=== PATIENT | male | born 1955 | race African-American/Black ===

== ENCOUNTER 2019-04-30 23:21 | Inpatient (IN) | payer OTHER ==
[~2019-04-30] VITALS: Ht 180.3 cm; Wt 83.0 kg
[2019-04-30 23:30] VITALS: BP 146/80
[2019-04-30] MEDS ORDERED: ALBUTEROL SULF8.5 GM INH (23:31)
[2019-04-30] MEDS ORDERED: HYDRALAZINE HCL10 MG ORAL (23:31)
--- NOTE | 2019-04-30 23:39 | Emergency Room Report ---
History of Present Illness General Chief Complaint: Dyspnea/Respdistress Source: Patient Present Illness HPI This is a 63-year-old male with a history of COPD and hypertension. He presents with chief complaint of shortness of breath. Onset of about 4 hours ago. He was watching TV when he started having shortness of breath and wheezing. His inhaler was not helping. He called 911. EMS said he has wheezing and gave him breathing treatment. He denies any chest pain. Worse with inspiration. Worse with lying flat. Worse with exertion. Better with rest. Better with breathing treatment. Denies any trauma. No fever. Coughing is productive of phlegm. This is similar to previous episode. He said he get this exacerbation has got the hospital every month. He is currently on prednisone at 10 mg a day. Allergies: Coded Allergies: No Known Allergies (Unverified , 04/30/19) Patient History Past Medical History: see triage record, old chart reviewed, HTN, COPD Past Surgical History: other Pertinent Family History: none Social History: Denies: smoking Immunizations: other Reviewed Nursing Documentation: PMH: Agreed; PSxH: Agreed Nursing Documentation-PMH Past Medical History: No History, Except For Hx Hypertension: Yes Hx Asthma: Yes Hx COPD: Yes Review of Systems Eye: Denies: eye pain, blurred vision ENT: Denies: ear pain, nose congestion, throat swelling Respiratory: Reports: cough, shortness of breath, sputum Cardiovascular: Denies: chest pain, palpitations Gastrointestinal: Denies: abdominal pain, diarrhea, nausea, vomiting Musculoskeletal: Denies: back pain, joint pain Skin: Denies: rash Neurological: Denies: headache, numbness Endocrine: Denies: increased thirst, increased urine Hematologic/Lymphatic: Denies: easy bruising All Other Systems: negative except mentioned in HPI Physical Exam Vital Signs Date Time Temp Pulse Resp B/P (MAP) Pulse Ox O2 Delivery O2 Flow Rate FiO2 04/30/19 23:27 98.1 73 20 154/86 (108) 94 Room Air Vitals with high blood pressure Sp02 EP Interpretation: reviewed, normal General Appearance: well appearing, no apparent distress, alert Head: normocephalic, atraumatic Eyes: bilateral eye PERRL, bilateral eye EOMI ENT: hearing grossly normal, normal pharynx Neck: full range of motion, supple, no meningismus Respiratory: chest non-tender, decreased breath sounds, accessory muscle use, wheezing Cardiovascular #1: regular rate, rhythm, no murmur Gastrointestinal: normal bowel sounds, non tender, no mass, no organomegaly, no bruit, non-distended Musculoskeletal: back normal, normal range of motion, gait/station normal Psychiatric: mood/affect normal Medical Decision Making Diagnostic Impression: Primary Impression: ACS (acute coronary syndrome) Additional Impressions: COPD exacerbation Cocaine abuse Acute hypokalemia ER Course Patient presents with shortness of breath and wheezing. Better after nebulizer treatment. Probably worsened because of his cocaine abuse. Initially denies any drug abuse but admits to alcohol and cocaine yesterday. Now he also complaining of left chest pain going to his jaw. Also has shoulder pain which she attributed to rheumatoid arthritis. He said this been ongoing for last 2 hours. Pain is aching in nature. 5 out of 10. His troponin is intermediate. This may be secondary to drug abuse and or CAD. Aspirin and Lovenox given here. Nitroglycerin paste given. Patient felt better afterward. Will admit versus transfer for further work-up. Patient approved for admission here. I contacted Dr. Moreno for admission. Patient is pain-free now. Lab Results Impression Labs with intermediate troponin EKG Diagnostic Results Rate: normal Rhythm: NSR ST Segments: no acute changes Rhythm Strip Diag. Results EP Interpretation: yes Rate: 63 Rhythm: NSR, no PVC's, no ectopy Chest X-Ray Diagnostic Results Chest X-Ray Diagnostic Results : Chest X-Ray Ordered: Yes # of Views/Limited/Complete: 1 View Indication: Shortness of Breath EP Interpretation: Yes Interpretation: no consolidation, no effusion, no pneumothorax Impression: No acute disease Electronically Signed by: Tereso Cárdenas MD Last Vital Signs Date Time Temp Pulse Resp B/P (MAP) Pulse Ox O2 Delivery O2 Flow Rate FiO2 04/30/19 23:27 98.1 73 20 154/86 (108) 94 Room Air Status: improved Disposition: ADMITTED INPATIENT Condition: Serious Tereso Cárdenas MD Apr 30, 2019 23:39
[2019-04-30] MEDS ORDERED: Albuterol ud Inhalation HHN ONE (23:45)
[2019-04-30] MEDS ORDERED: Ipratropium 0.02% Inh Soln 2.5ml UD HHN ONE (23:45)
[2019-04-30] MEDS ORDERED: Solu-MEDROL 125mg Inj IVP ONE (23:45)
[2019-05-01 00:09] LABS: BASOPHILS % (AUTO) 0.8 % (0.0-2.0); EOSINOPHILS % (AUTO) 12.6 % (0.0-3.0); HEMATOCRIT 42.5 % (42.0-52.0); HEMOGLOBIN 14.6 G/DL (14.2-18.0); LYMPHOCYTES % (AUTO) 22.7 % (20.0-45.0); MEAN CORPUSCULAR VOLUME 90 FL (80-99); MONOCYTES % (AUTO) 8.2 % (1.0-10.0); NEUTROPHILS % (AUTO) 55.7 % (45.0-75.0); PLATELET COUNT 254 K/UL (150-450); RED CELL DISTRIBUTION WIDTH 11.9 % (11.6-14.8); WHITE BLOOD COUNT 8.7 K/UL (4.8-10.8)
[2019-05-01 00:20] LABS: ANION GAP 11 mmol/L (5-15); BLOOD UREA NITROGEN 16 mg/dL (7-18); CALCIUM 8.6 MG/DL (8.5-10.1); CARBON DIOXIDE 26 MMOL/L (21-32); CHLORIDE 104 MMOL/L (98-107); CREATININE 0.9 MG/DL (0.55-1.30); SODIUM 141 MMOL/L (136-145)
--- NOTE | 2019-05-01 00:22 | Diagnostic Imaging Report ---
EXAM: XR Chest, 1 View CLINICAL HISTORY: SOB TECHNIQUE: Frontal view of the chest. COMPARISON: No relevant prior studies available. FINDINGS: Borderline to mild cardiomegaly. Question subcentimeter parenchymal nodule right lower lobe. CT chest recommended if prior studies cannot be located to document stability. Negative for parenchymal consolidation, pneumothorax or pleural fluid collections. <MYCVCSECTION> Communications: 05/01/19 00:26 Verify Receipt Verified receipt with ER clerk Josue, given to Tereso Cárdenas MD on 05/01 00:26 (-08:00)
[2019-05-01 00:24] LABS: ALANINE AMINOTRANSFERASE 22 U/L (12-78); ALBUMIN 3.4 G/DL (3.4-5.0); ALBUMIN/GLOBULIN RATIO 0.9 (1.0-2.7); ALKALINE PHOSPHATASE 83 U/L (46-116); ASPARTATE AMINO TRANSFERASE 25 U/L (15-37); BILIRUBIN,TOTAL 0.5 MG/DL (0.2-1.0)
[2019-05-01 00:54] LABS: APPEARANCE,URINE CLEAR; BILIRUBIN, URINE NEGATIVE (NEGATIVE); COLOR,URINE PALE YELLOW; GLUCOSE, URINE (UA) NEGATIVE (NEGATIVE); KETONES,URINE 1+ (NEGATIVE); LEUKOCYTE ESTERASE ,URINE NEGATIVE (NEGATIVE); NITRITE,URINE NEGATIVE (NEGATIVE); PH,URINE 6.5 (4.5-8.0); PROTEIN,URINE 2+ (NEGATIVE); UROBILINOGEN,URINE NORMAL MG/DL (0.0-1.0)
[2019-05-01] MEDS ORDERED: Aspirin Baby 81mg ORAL ONE (01:00)
[2019-05-01] MEDS ORDERED: Enoxaparin 80mg Inj SUBQ ONE (01:00)
[2019-05-01] MEDS ORDERED: Morphine Sulfate 4mg/ml Inj (IV USE ONLY) IVP ONE (01:00)
[2019-05-01] MEDS ORDERED: Nitroglycerin 2% oint pkt TOPIC ONE (01:00)
[2019-05-01] MEDS ORDERED: Albuterol ud Inhalation HHN PRN (02:30)
[2019-05-01] MEDS ORDERED: LOSARTAN POTASS50 MG ORAL (02:50)
[2019-05-01] MEDS ORDERED: NORVASC10 MG ORAL (02:51)
[2019-05-01] MEDS ORDERED: PREDNISOLO15 MG/5 M1 ORAL (02:52)
[2019-05-01] MEDS ORDERED: SINGULAIR10 MG ORAL (02:52)
[2019-05-01 03:19] VITALS: BP 165/93
[2019-05-01] MEDS ORDERED: Metoclopramide 10mg/2ml Inj IVP PRN (04:00)
[2019-05-01] MEDS ORDERED: LORazepam 1mg tab ORAL PRN (04:00)
[2019-05-01] MEDS ORDERED: Morphine Sulfate 2mg/ml Inj(IV/IM USE ONLY) IVP PRN (04:00)
[2019-05-01] MEDS ORDERED: Miralax 17gm pkt ORAL PRN (04:00)
[2019-05-01] MEDS: Morphine Sulfate 4mg/ml Inj (IV USE ONLY) IVP PRN ×3 (06:39→21:42)
[2019-05-01] MEDS: Ipratropium 0.02% Inh Soln 2.5ml UD HHN SCH ×2 (06:56→12:45)
[2019-05-01 08:00] VITALS: BP 146/83
[2019-05-01] MEDS: Losartan 50mg tab ORAL SCH (08:49)
[2019-05-01] MEDS: Aspirin Baby 81mg ORAL SCH (08:49)
[2019-05-01] MEDS: Montelukast 10mg tablet ORAL SCH (08:50)
[2019-05-01] MEDS: Heparin 5000 units/ml inj SUBQ SCH ×2 (08:55→21:43)
[2019-05-01 12:00] VITALS: BP 129/90
[2019-05-01] MEDS ORDERED: Piperacillin/Tazobactam 2.25 GM in D5W 55 ML IVPB SCH (14:45)
--- NOTE | 2019-05-01 14:53 | History & Physical ---
History and Physical History & Physicial HP dictated # [id number] Ben Moreno MD May 01, 2019 14:53
[2019-05-01] MEDS: Albuterol/Ipratropium 3ml neb HHN SCH ×2 (15:00→19:42)
[2019-05-01] MEDS: Solu-MEDROL 40mg Inj IVP SCH ×2 (15:24→21:42)
[2019-05-01] MEDS: Zosyn 3.375gm q8h **Extended infusion IVPB SCH ×4 (15:24→21:42)
[2019-05-01 15:52] VITALS: BP 129/74
--- NOTE | 2019-05-01 18:45 | History and Physical Report ---
DATE OF ADMISSION: 05/01/2019 CHIEF COMPLAINT: Shortness of breath, cough, and sputum production. HISTORY OF PRESENT ILLNESS: This is a 63-year-old male with history of COPD. The patient started having some cough and sputum production about two weeks ago. Yesterday, he started getting short of breath and he was taking his inhalers, however, he did not get better. He had called 911. The patient was brought into the emergency room and was admitted with diagnosis of COPD exacerbation. PAST MEDICAL HISTORY: Includes history of hypertension and COPD. SOCIAL HISTORY: The patient used to smoke until five years ago. He has a long history of smoking half a pack a day prior to quitting. He has history of alcohol abuse, although he does not specify, he said he only drinks over the weekend. He lives in a [place] [facility]. ALLERGIES: No known drug allergies. REVIEW OF SYSTEMS: As above. PHYSICAL EXAMINATION: GENERAL: The patient is a 63-year-old male, in no acute distress. VITAL SIGNS: Blood pressure 146/83, pulse 62, temperature 98.2 and respiratory rate 19. HEENT: [place] conjunctivae. Anicteric sclerae. NECK: Supple. LUNGS: Diffuse expiratory wheezing. HEART: S1-S2 without murmurs or rubs. ABDOMEN: Soft and nontender. EXTREMITIES: No cyanosis or edema. LABORATORY FINDINGS: The chemistry panel shows serum sodium 141, potassium 3, chloride 104, CO2 26, BUN 16, and creatinine 0.9. Troponin is 0.2. UA is negative. CBC shows WBC of 8700, hematocrit 42.5, hemoglobin 15.6, and platelets 254,000. ASSESSMENT: This is a 63-year-old male, who was admitted with chronic obstructive pulmonary disease exacerbation, possibly some acute bronchitis as well, as the patient has had cough and sputum production. He has also hypokalemia. Hypomagnesemia needs to be ruled out. Also, we have to make sure that he does not have any underlying cardiac issues, i.e. congestive heart failure. PLAN: The patient will be on bronchodilators, IV steroids, and antibiotics. A 2-D echo will be obtained to assess LV function. Magnesium will be ordered with repeat BMP tomorrow and adjustment will be made in the patient's regimen. Ben Moreno M.D. DR: ERIKA JOB#: [id number] CC:
[2019-05-01 20:00] VITALS: BP 146/83
[2019-05-02] VITALS: BP 128/26
[2019-05-02] MEDS: Morphine Sulfate 4mg/ml Inj (IV USE ONLY) IVP PRN ×2 (01:00→05:54)
[2019-05-02] MEDS: Albuterol/Ipratropium 3ml neb HHN SCH ×3 (01:37→12:50)
[2019-05-02 04:00] VITALS: BP 123/74
[2019-05-02] MEDS: Zosyn 3.375gm q8h **Extended infusion IVPB SCH ×4 (05:53→13:19)
[2019-05-02 08:00] VITALS: BP 134/83
[2019-05-02 08:05] LABS: ALANINE AMINOTRANSFERASE 17 U/L (12-78); ALBUMIN 2.9 G/DL (3.4-5.0); ALBUMIN/GLOBULIN RATIO 0.8 (1.0-2.7); ALKALINE PHOSPHATASE 82 U/L (46-116); ANION GAP 9 mmol/L (5-15); ASPARTATE AMINO TRANSFERASE 16 U/L (15-37); BILIRUBIN,TOTAL 0.2 MG/DL (0.2-1.0); BLOOD UREA NITROGEN 25 mg/dL (7-18); CALCIUM 8.7 MG/DL (8.5-10.1); CARBON DIOXIDE 24 MMOL/L (21-32); CHLORIDE 107 MMOL/L (98-107); CHOLESTEROL 176 MG/DL (< 200); HDL CHOLESTEROL 89 MG/DL (40-60); POTASSIUM 4.2 MMOL/L (3.5-5.1); SODIUM 140 MMOL/L (136-145); TRIGLYCERIDES 49 MG/DL (30-150)
[2019-05-02] MEDS: Solu-MEDROL 40mg Inj IVP SCH (09:00)
[2019-05-02] MEDS: Aspirin Baby 81mg ORAL SCH (09:00)
[2019-05-02] MEDS: Heparin 5000 units/ml inj SUBQ SCH (09:00)
[2019-05-02] MEDS: Losartan 50mg tab ORAL SCH (09:01)
[2019-05-02] MEDS: Montelukast 10mg tablet ORAL SCH (09:02)
[2019-05-02 12:00] VITALS: BP 150/96
--- NOTE | 2019-05-03 14:12 | Discharge Summary ---
Discharge Summary Discharge Summary _ DATE OF ADMISSION: 05/01/2019 DATE OF DISCHARGE: 05/02/2019 Patient left AGAINST MEDICAL ADVICE REASON FOR ADMISSION: 63 years old male with past medical history of hypertension , COPD presented to emergency department with complaint of cough with sputum production for 2 weeks. The day prior to presentation to ED, he started to developed shortness of breath. No chest pain. Patient reported taking his inhalers without much help. Laboratory work-up revealed minimally elevated troponin 0.223. ECG revealed sinus rhythm, no acute ischemic changes. No leukocytosis , stable hemoglobin and hematocrit. Stable renal parameters . K-3.0 Urine toxicology screen was positive for cocaine and marijuana Shortly after initial evaluation patient was admitted with diagnosis of COPD exacerbation. HOSPITAL COURSE: Patient admitted to telemetry floor. Supplemental oxygen provided and titrated to keep pulse oximetry above 92%. Bronchodilator therapy provided [id number] and as needed. Patient started on IV steroids and empiric antibiotics. Potassium was replaced. Repeated serial troponin slightly trending down 0.209 and 0.187. Echocardiogram demonstrated preserved ejection fraction 55 to 60% with moderate left ventricular hypertrophy. No evidence of pericardial effusion. No evidence of wall motion abnormality. Right ventricular systolic pressure of 15. Lipid panel was stable. TSH noted to be low .Free T4 and T3 ordered. Pulse oximetry was stable on room air. Magnesium was stable . Potassium, after replacement -4.2 . Patient was on antiplatelet therapy with aspirin. Blood pressure was managed with calcium channel zee and angiotensin receptor zee. Pain management was addressed as needed. GI prophylaxis provided. Supportive care provided. The next day patient decided to leave AGAINST MEDICAL ADVICE. The risks and consequences of signing AGAINST MEDICAL ADVICE were discussed with patient in detail. Patient verbalized understanding, nevertheless signed AMA form and left. Patient reported that he was going back to [facility] , where he was before. FINAL DIAGNOSES: COPD exacerbation Possible acute bronchitis Hypokalemia Elevated troponin Cocaine abuse I have been assigned to dictate discharge summary for this account. I was not involved in the patient's management. Charissa Lay NP May 03, 2019 14:11
== END 2019-05-02 16:26 | disposition left against medical advice (07) | DRG 140 ==
LOC: EDBD 23:21 → EMR 23:34 → EDBD 05-01 01:46 → 2E 05-01 01:46 → EDBEDREQ 05-01 02:35
DX: J44.1 Chronic obstructive pulmonary disease with (acute) exacerbation (principal); Z53.29 Procedure and treatment not carried out because of patient's decision for other reasons; Z59.0 Homelessness; I10 Essential (primary) hypertension; F14.10 Cocaine abuse, uncomplicated; E87.6 Hypokalemia; J20.9 Acute bronchitis, unspecified; J44.0 Chronic obstructive pulmonary disease with (acute) lower respiratory infection; Z87.891 Personal history of nicotine dependence
CPT/HCPCS: 36415; 71045; 80053; 80061; 80307; 81003; 83036; 83735; 84443; 84484; 85025; 93306; 94640; 96374; 99285; J7620; J8499